=== PATIENT | female | born 1965 | race Caucasian/White ===

== ENCOUNTER 2016-10-02 12:26 | Day surgery (SDC) | payer OTHER ==
[2016-09-28 15:08] VITALS: BMI 16.9
[2016-10-02 12:52] VITALS: TEMP 98.6
[2016-10-02] MEDS ORDERED: MIDAZOLAM HCL 2 MG/2 ML SINGLE DOSE VIAL ONE (13:47)
[2016-10-02] MEDS ORDERED: ROPIVACAINE HCL 0.5% 30ML VIAL ONE (13:48)
[2016-10-02] MEDS ORDERED: DEXAMETHASONE SOD PHOSPHATE/PF 10 MG/ML SDV ONE (13:48)
--- NOTE | 2016-10-02 14:29 | HP ---
Satellite [facility] - Chief Complaint Chief Complaint: left shoulder pain History of Present Illness: left shoulder proximal biceps tendon rupture History Source: Patient Limitations to Obtaining History: No Limitations - Past Medical History Allergies/Adverse Reactions: Allergies Allergy/AdvReac Type Severity Reaction Status Date / Time No Known Drug Allergies Allergy Verified 10/02/16 12:43 ...LMP: 08/08/15 - Current Medications Current Medications: Home Medications Medication Instructions Recorded Estradiol [Estrace] 1 mg PO DAILY 09/28/16 Levothyroxine [Synthroid -] 100 mcg PO DAILY 09/28/16 Satellite Physical Exam - Physical Examination Vital Signs: Vital Signs Period Temp Pulse Resp BP Sys/Lynch Pulse Ox Last 24 Hr 98.6 F 58 16 94/65 100 General Appearance: Well Nourished ENT: Clear Lung: Clear to auscultation Heart: Regular rate & rhythm Breasts: Soft, Other Abdomen: Soft Extremities: No edema Satellite Impression/Plan - Impression/Plan Impression: left shoulder proximal tendon rupture Operative Procedure: open left shoulder proximal tendon repair, tenodesis Date to be Performed: 10/02/16
[2016-10-02] MEDS ORDERED: PROPOFOL 20 ML ONE ×3 (14:30)
--- NOTE | 2016-10-02 14:34 | OP ---
Operative Note - Note: Operative Date: 10/02/16 Pre-Operative Diagnosis: left shoulder proximal biceps tendon rupture Operation: left shoulder proximal biceps tendon repair/tenodesis Implants: Arthrex biceps tenodesis screw Surgeon: Cleveland Duron Boot Lace Cutter Machine: Francois Marcum Anesthesiologist/TOP LIFT AND AUTOMATIC WINDOW REPAIRER: Aldo Powers Anesthesia: General, Local Estimated Blood Loss (mls): 0 Blood Volume Replaced (mls): 0 Fluid Volume Replaced (mls): 500 Operative Report Dictated: Yes
[2016-10-02] MEDS ORDERED: ceFAZolin SODIUM 1 GM VIAL ONE (14:43)
[2016-10-02] MEDS ORDERED: KETOROLAC TROMETHAMINE 30 MG/1 ML VIAL ONE (15:26)
[2016-10-02] MEDS ORDERED: ONDANSETRON 4 MG/2 ML VIAL IVPUSH PRN (15:44)
[2016-10-02] MEDS ORDERED: oxyCODONE HCL 5 MG TABLET PO PRN (15:44)
[2016-10-02] MEDS ORDERED: LACTATED RINGERS SOLUTION 1,000 ML IV SCH (15:45)
[2016-10-02 17:09] VITALS: BP 121/87; PULSE 75
--- NOTE | 2016-10-03 09:09 | OP ---
DATE OF OPERATION: 10/02/2016 PREOPERATIVE DIAGNOSIS: Left proximal biceps tendon rupture. POSTOPERATIVE DIAGNOSIS: Left proximal biceps tendon rupture. PROCEDURE: Left open biceps tendon repair/tenodesis. SURGEON: Humberto Nation MD SLAB INSTALLER: Francois Marcum MD ANESTHESIOLOGIST: Aldo Powers DO ANESTHESIA: Left interscalene block with propofol sedation. DRAINS: None. COMPLICATIONS: None. SPECIMENS: None. BLOOD LOSS: None. BLOOD GIVEN: None. FLUID REPLACEMENT: 500 mL. INDICATIONS: This patient is a 51-year-old female with a preoperative diagnosis of a left proximal biceps tendon rupture. After understanding the potential risks, complications, alternatives, and benefits of surgical versus nonsurgical treatment, the patient elected to undergo this procedure. DESCRIPTION OF PROCEDURE: The patient was brought to the operating room, peripheral IV placed, IV sedation given, 1 g of IV Ancef was given. A left interscalene block was performed. MAC anesthesia was induced with propofol. She was placed in the beach-chair position with ample padding throughout. Left upper extremity was prepped and draped in a sterile fashion. The case was begun by marking out a longitudinal incision over the arm at the area of the proximal biceps tendon groove. The incision was made with a No. 15 scalpel blade. Subcutaneous hemostasis was achieved with the Bovie cautery. Blunt dissection with my finger was done down at the inferior border of the pectoralis insertion. I was able to fill the inferior border of the biceps groove. This will be our point of insertion. Then, we were able to find the distal stump of the biceps tendon that had ruptured distally. It was brought up into the wound and mobilized as much as possible with my finger. We then used the Arthrex FiberWire FiberLoop to put whipstitches through the distal 2 cm of the biceps tendon. It was then brought up to the point of insertion to confirm that there was good length. Then, using a standard technique, we put in an Arthrex Tenodesis Endobutton. Basically we first drilled bicortically, then overdrilled in a cannulated fashion unicortically just the anterior cortex. Then, we fed the FiberWire tails through the Endobutton in a standard fashion and fed it through the anterior, then the posterior cortex of the proximal humerus. We then manipulated the FiberWire tails and put in and flipped over the Endobutton. It was secure, and we were able to cinch it down until the proximal biceps tendon stump went into the hole of the cortex of the humerus. It all came together quite nicely, there was a good length, and then, we put in a supplemental stitch, fed the FiberWire through, and tied it to itself to prevent backing up. It was cut. The area was copiously irrigated and washed out. We put it over through a good range of motion, both pronation and supination, and flexion and extension. The area was irrigated. The deep dermal layer closed with 2-0 Vicryl suture. The final skin reapproximation was done with the running subcuticular 4-0 Biosyn sutures. The area was then washed and dried, covered with Steri-Strips, 6-inch Aquacel, and she was put into a regular sling. She was stable throughout the case. There were no complications. She was woken up and brought to the ambulatory recovery room in stable condition. HUMBERTO NATION M.D. [id number]
== END 2016-10-02 17:00 | disposition home or self-care (01) ==
LOC: FASU 12:26
PROVIDERS: ATTEND Orthopaedic Surgery
PROC: 0LS40ZZ Reposition Left Upper Arm Tendon, Open Approach (ICD-10-PCS; principal; 2016-10-02 14:50)
DX: S46.211A Strain of muscle, fascia and tendon of other parts of biceps, right arm, initial encounter (principal); X58.XXXA Exposure to other specified factors, initial encounter; Y93.9 Activity, unspecified; Y92.9 Unspecified place or not applicable

== ENCOUNTER 2017-08-06 12:29 | Day surgery (SDC) | payer OTHER ==
[2017-08-02 13:25] VITALS: BMI 17.6
--- NOTE | 2017-08-06 13:59 | HP ---
Satellite [facility] - Chief Complaint Chief Complaint: right biceps tendon rupture - Past Medical History Allergies/Adverse Reactions: Allergies Allergy/AdvReac Type Severity Reaction Status Date / Time No Known Drug Allergies Allergy Verified 08/02/17 13:18 ...LMP: 08/08/15 - Current Medications Current Medications: Home Medications Medication Instructions Recorded Estradiol [Estrace] 1 mg PO DAILY 09/28/16 Levothyroxine [Synthroid -] 100 mcg PO DAILY 09/28/16 Hydrocodone/Acetaminophen [[place] 1 each PO Q6H PRN #40 tablet MDD 4 08/06/17 5-325 Tablet] Satellite Physical Exam - Physical Examination Vital Signs: Vital Signs Period Temp Pulse Resp BP Sys/Lynch Pulse Ox Last 24 Hr 97.8 F 60 18 110/80 99 General Appearance: Well Nourished, Well Developed, Alert & Oriented x3 ENT: Clear Lung: Normal air movement Heart: Regular rate & rhythm Extremities: Other (right shoulder- + ttp, + desi deformity, nvi) Neurological: Intact, Alert, Oriented Satellite Impression/Plan - Impression/Plan Impression: right proximal biceps tendon rupture Operative Procedure: right proximal biceps tenodesis Date to be Performed: 08/06/17
[2017-08-06] MEDS ORDERED: MIDAZOLAM HCL 2 MG/2 ML SINGLE DOSE VIAL ONE ×2 (14:06)
[2017-08-06] MEDS ORDERED: DEXAMETHASONE SOD PHOSPHATE 4 MG/1 ML VIAL ONE (14:06)
[2017-08-06] MEDS ORDERED: LIDOCAINE HCL/PF 2% SDV 5ML VIAL ONE (14:06)
[2017-08-06] MEDS ORDERED: ONDANSETRON 4 MG/2 ML VIAL ONE ×2 (14:06→16:45)
[2017-08-06] MEDS ORDERED: PROPOFOL 20 ML ONE (14:07)
[2017-08-06] MEDS ORDERED: ROCURONIUM BROMIDE 50 MG/5 ML VIAL ONE (14:07)
[2017-08-06] MEDS ORDERED: ROPIVACAINE HCL 0.5% 30ML VIAL ONE (14:09)
[2017-08-06] MEDS ORDERED: ceFAZolin SODIUM 1 GM VIAL ONE (14:41)
[2017-08-06] MEDS ORDERED: oxyCODONE HCL 5 MG TABLET PO PRN (15:14)
[2017-08-06] MEDS ORDERED: ONDANSETRON 4 MG/2 ML VIAL IVPUSH PRN (15:14)
[2017-08-06] MEDS ORDERED: LACTATED RINGERS SOLUTION 1,000 ML IV SCH (15:15)
[2017-08-06] MEDS ORDERED: NEOSTIGMINE METHYLSULFATE 0.5 MG/ML - 10 ML MDV ONE (15:56)
--- NOTE | 2017-08-06 16:06 | OP ---
Operative Note - Note: Operative Date: 08/06/17 Pre-Operative Diagnosis: right proximal biceps tendon rupture Operation: right proximal biceps tendon tenodesis Implants: Arthrex tenodesis endobutton Surgeon: Cleveland Duron Tube Room Supervisor: Sachin Langley Anesthesiologist/DONKEY DOCTOR: Erma Trujillo Anesthesia: General, Local Estimated Blood Loss (mls): 30 Drains, Volume Out (mls): 0 Blood Volume Replaced (mls): 0 Fluid Volume Replaced (mls): 1,000 Operative Report Dictated: Yes
[2017-08-06] MEDS ORDERED: ONDANSETRON 4 MG/2 ML VIAL IVPUSH ONE (16:49)
--- NOTE | 2017-08-06 17:06 | OP ---
DATE OF OPERATION: 08/06/2017 PREOPERATIVE DIAGNOSIS: Right proximal tendon rupture. POSTOPERATIVE DIAGNOSIS: Right proximal tendon rupture. PROCEDURE: Right proximal biceps tendon repair/tenodesis. SURGEON: Humberto Nation MD STENCIL TYPIST: JUDY Browning ANESTHESIA: Right interscalene block with Godfrey Friend MD DRAINS: None. COMPLICATIONS: None. BLOOD LOSS: 30 mL BLOOD GIVEN: None. FLUID REPLACEMENT: 500 mL INDICATION FOR PROCEDURE: This patient is a 52-year-old female with a preoperative diagnosis of a complete rupture of the right proximal biceps tendon. After understanding the potential risks, complications, alternatives, and benefits of surgery versus nonsurgical treatment, the patient elected to undergo this procedure. DESCRIPTION OF PROCEDURE: Patient was brought to the operating room, peripheral IV placed, IV sedation given. One gram of IV Ancef was given. A right interscalene block was performed. The right upper extremity was prepped and draped in sterile fashion. She was placed into beach chair position prior to this with ample padding throughout. An incision was marked out and made with a number-15 scalpel blade starting from the anterior aspect of the right shoulder, going down towards the axilla and the medial border of the biceps muscle belly. Subcutaneous hemostasis was achieved with the Bovie cautery. Dissection done down to the proximal biceps tendon sheath. This was opened. I was able to directly visualize and palpate the groove. Periosteal dissection was done for our entry point. I was able to feel the tendon distally but was not able to get it up through this proximal incision. Therefore, another distal incision was made at the level of the biceps tendon. It was about 1.5 inches in length. I dissected down to the tendon. I was able to find the tendon, bring it out through the wound. It was really scarred down. It was from itself. I was able to free up the scarred-down tendon muscle belly with my finger. I was able to bring it out through the wound and put in the Arthrex FiberLoop. We got excellent fixation after measuring where I wanted the tendon to go into the bone and the length of tendon and the bone, cut off the proximal stump of about 1.5 inches. Next, we prepared the hole for the EndoButton. First was with a bicortical guidewire. Then, I just overdrilled in a cannulated fashion just the proximal/anterior cortex. Next, I fed the FiberWires through the EndoButton, and putting the appropriate tension, I was able to deliver it through the posterior cortex using the sutures. We flipped it and then tensioned it. I pulled on it and was not able to get it out. Next, I was able to pull both sides of the proximal 2 tails, and it brought the proximal stump of the tendon into the proximal humerus through the hole that we had drilled. Overall, the tension was quite good, and I tightened it up as much as possible. Then, I used a free needle to bring the FiberWire through the exposed portion of the tendon and tied it to itself for additional fixation and moved the arm. The biceps moved quite well, and again, I was quite happy with the tension. I believe I went more proximal than usual, and I think that it was a good amount of tension on the proximal biceps tendon. Next, both incisions were irrigated and washed out. The deep fascial layer of the deltoid was fixed over the biceps with 0 Vicryl suture. The skin reapproximation was done with 2-0 Vicryl in the deep dermal layer, and then, final skin reapproximation was done with a running subcuticular 3-0 V-Loc suture. The area was washed, dried, and both incisions covered with Aquacel. The total operative time was 55 minutes. There were no complications during the case. Patient tolerated the procedure quite well. Blood loss was 30 mL. She was extubated and brought to the ambulatory recovery room in stable condition. HUMBERTO NATION M.D. [id number]
[2017-08-06] MEDS ORDERED: oxyCODONE HCL 5 MG TABLET ONE (17:55)
[2017-08-06 18:15] VITALS: TEMP 98.2
[2017-08-06 18:16] VITALS: BP 125/78; PULSE 84
== END 2017-08-06 18:50 | disposition home or self-care (01) ==
LOC: FASU 12:29
PROVIDERS: ATTEND Orthopaedic Surgery
PROC: 0LS30ZZ Reposition Right Upper Arm Tendon, Open Approach (ICD-10-PCS; 2017-08-06)
PROC: 0LM10ZZ Reattachment of Right Shoulder Tendon, Open Approach (ICD-10-PCS; principal; 2017-08-06 14:59)
DX: M66.811 Spontaneous rupture of other tendons, right shoulder (principal)
CPT/HCPCS: 84703; 94760